=== PATIENT | female | born 1955 | race Caucasian/White ===

== ENCOUNTER 2018-08-16 12:17 | Inpatient (IN) ==
[2018-08-16 13:14] LABS: BASO# 0.06 X1000 (0.0-0.2); BASO% 0.6 % (0.0-0.8); EOS# 0.28 X1000 (0.0-0.7); EOS% 2.7 % (0.0-10.0); HEMATOCRIT 36.1 % (37.0-47.0); HEMOGLOBIN 11.4 g/dL (12.0-16.0); IMM GRAN# 0.02 X1000 (0.0-0.04); IMM GRAN% 0.2 % (0.0-0.5); LYMPH# 3.17 X1000 (1.2-3.4); LYMPH% 31.1 % (20.5-51.1); MCH 25.2 PG (27-31); MCHC 31.6 g/dL (33-37); MCV 79.7 FL (81-99); MONO# 0.77 X1000 (0.11-0.59); MONO% 7.6 % (1.7-9.3); MPV 10.1 FL (7.4-10.4); NEUT# 5.89 X1000 (1.4-6.5); NEUT% 57.8 % (42.2-75.2); PLT 314 X1000 (130-400); RBC 4.53 XMIL (4.2-5.4); RDW 14.9 % (11.5-14.5); WBC 10.19 X1000 (4.8-10.8)
--- NOTE | 2018-08-16 13:23 | EKG Report ---
Test Performed on : 08/16/2018 12:51:51 PM Test Reason : CVA Blood Pressure : / mmHG Vent. Rate : 083 BPM Atrial Rate : 083 BPM P-R Int : 154 ms QRS Dur : 114 ms QT Int : 376 ms P-R-T Axes : 047 -46 028 degrees QTc Int : 441 ms Normal sinus rhythm. Left anterior fascicular block Minimal voltage criteria for LVH, may be normal variant Abnormal ECG When compared with ECG of 25-JUL-2018 00:33, (Unconfirmed) Minimal criteria for Septal infarct are no longer present Unconfirmed Result
[2018-08-16 13:28] LABS: INR 1.06; PROTIME 14.3 Seconds (11.0-16.0)
--- NOTE | 2018-08-16 13:31 | Diag Imaging Result Doc PS360 ---
EXAM: CT HEAD W/O CONTRAST 08/16/2018 HISTORY: CVA TECHNIQUE: This exam was performed using automated exposure control, adjustment of mA or kV according to patient size, and/or use of iterative reconstruction technique. COMMENT: There is bilateral frontal encephalomalacia as well as extensive chronic appearing changes in the white matter of both hemispheres particularly in the centrum semiovale ovale regions. Compared to 07/25/2018 this has not changed significantly. There is no evidence of bleed mass effect or abnormal extra-axial fluid collection. The calvarium is intact. The paranasal sinuses are clear. IMPRESSION: Frontal encephalomalacia and chronic ischemic microvascular disease. No evidence of acute disease. Electronically signed by Will Monreal 08/16/2018 1:29 PM
[2018-08-16 13:36] LABS: AGAP 12; ALBUMIN 4.2 g/dL (3.5-5.0); ALKALINE PHOSPHATASE 115 U/L (32-104); BUN 12 mg/dL (8-22); CALCIUM 9.7 mg/dL (8.8-10.2); CHLORIDE 99 mmol/L (98-107); COSMO 282; CREATININE 0.8 mg/dL (0.5-0.9); ESTIMATED GFR > 60; GLUCOSE 153 mg/dL (70-104); GOT 51 U/L (10-30); GPT 35 U/L (10-36); POTASSIUM 4.6 mmol/L (3.5-5.1); SODIUM 140 mmol/L (136-145); TCO2 28 mmol/L (25-35); TOTAL PROTEIN 7.6 g/dL (6.3-8.3)
[2018-08-16] MEDS ORDERED: ASPIRIN PO ONE (13:38)
--- NOTE | 2018-08-16 13:40 | Diag Imaging Result Doc PS360 ---
EXAM: CHEST-PORTABLE HISTORY: CVA TECHNIQUE: Chest single view COMPARISON: 03/19/2017 FINDINGS: The lungs are well expanded. The heart is not enlarged. The vessels are not distended. There are no infiltrates. No effusion identified. IMPRESSION: Negative exam. Electronically signed by George Hernandez 08/16/2018 1:38 PM
--- NOTE | 2018-08-16 14:02 | PROVIDER DOCUMENTATION ---
This chart was entered by Joann Villeda Scribe, acting as scribe for Payam Lock MD. HPI-Neurological Disorder - General Chief Complaint: Stroke-Like Symptoms Stated Complaint: STROKE LIKE SX Time Seen by Provider: 08/16/18 12:53 Source: patient Allergies/Adverse Reactions: Patient Allergies Allergy/AdvReac Type Severity Reaction Status Date / Time morphine Allergy NAUSEA/VOMI Verified 08/16/18 12:38 TING Home Medications: Home Medication List Medication Instructions Recorded Confirmed Last Taken Type Alprazolam 0.5 mg PO HS 05/28/14 10/05/15 10/04/15 21:00 History 0.5 MG Lisinopril 2.5 mg PO DAILY 05/28/14 10/05/15 10/05/15 07:00 History 2.5 MG Metformin [Glucophage] 1,000 mg PO BID 05/28/14 10/05/15 10/05/15 07:00 History 1000 MG Sertraline [Zoloft] 200 mg PO DAILY 05/28/14 10/05/15 10/05/15 07:00 History 200 MG Trazodone [Desyrel] 300 mg PO HS 05/28/14 10/05/15 10/04/15 21:00 History 300 MG Fentanyl 50 Microgm/Hr Patch 1 patch TOP DIRECTED PRN PRN 10/05/15 10/05/15 10/04/15 10:00 History [Duragesic 50 Microgm/Hr Patch] yes Amoxicillin/Pot Clavulanate 875 mg PO Q12HR #20 tab 03/19/17 Unknown Rx [Augmentin] Promethazine/Dextromethorphan 10 ml PO Q6H PRN PRN #180 ml 03/19/17 Unknown Rx [Promethazine-Dm Syrup] Ciproflox/Dexameth Otic Susp 4 drp LEFT EAR BID #1 bottle 06/03/17 Unknown Rx [Ciprodex Otic Suspension] Acetaminophen with Codeine 1 ea PO Q6H PRN PRN #14 tab 07/25/18 Unknown Rx [Tylenol with Codeine #3 Tablet] - History of Present Illness-Neuro Nature of Presenting Problem: 63 yowf presents to the ed with c/o aphasia acute onset last night. pt sts sx have resolved on exam but does not have a pcp and wanted to be checked out. pt on exam is having normal conversation and has no seen neuro issues Headache Location: reports: frontal Severity: reports: mild Onset/Duration: reports: last night Timing: reports: gone now Context: reports: impaired speech Character of Altered Mental Status: reports: N/A Any recent trauma/injury?: reports: none Character of Deficits: reports: impaired speech New weakness or altered sensation location:: reports: none Cognitive Baseline: alert, oriented x3 Gait Baseline: walks without assistance Associated Symptoms: reports: headache, fatigue. denies: short of breath, decreased ability to walk or stand, fainting, confusion, chest pain, neck/back pain, fever/chills, nausea, vomiting, vision changes Similar Symptoms Previously?: No Recently seen or treated by another doctor?: No Review of Systems - Adult - REVIEW OF SYSTEMS - ADULT Constitutional: reports: see HPI, goyo. denies: chills, fever Eyes: reports: no symptoms reported Ears, Nose, Mouth & Throat: reports: no symptoms reported Cardiovascular: denies: chest pain, palpitations Respiratory: reports: no symptoms reported Gastrointestinal: denies: diarrhea, nausea, vomiting Genitourinary: reports: no symptoms reported Musculoskeletal: denies: joint pain, muscle weakness, neck pain Integumentary: reports: no symptoms reported Neurological: reports: see HPI, headache/migraines, other (aphasia). denies: dizziness/vertigo, loss of balance, numbness, paresthesia, seizure, slurred speech Psychiatric: reports: no symptoms reported Endocrine: reports: no symptoms reported Hematologic/Lymphatic: reports: no symptoms reported Allergic/Immunologic: reports: no symptoms reported All Other Systems: Reviewed and Negative Past History - Adult - PAST MEDICAL HISTORY-ADULT Review of Records: reports: Nursing Assessment Review, Medications Reviewed Major Childhood Illnesses: reports: denies history Cardiovascular: reports: HTN, hyperlipidemia Respiratory: reports: denies history Gastrointestinal: reports: cholelithiasis Obstetrical/Gynecological: reports: other (R breast cancer) Genitourinary: reports: denies history Musculoskeletal: reports: chronic pain Hand Dominance: Right Handed Neurological: reports: denies history Psychiatric: reports: denies history Endocrine/Immune: reports: Diabetes Diabetes Type: Type 2 Other Conditions: reports: denies history - PRIOR SURGERIES/PROCEDURES Surgical/Procedure History: reports: orthopedic (extremity) (bilateral shoulders), joint replacement (bilateral TKR) - PRIOR HOSPITALIZATIONS Prior Hospitalizations: reports: for other non-related - IMMUNIZATION STATUS Childhood Immunizations: See Nurse Assessment Flu Vaccine: See Nurse Assessment - FAMILY HISTORY Family History: reviewed, not pertinent - SOCIAL HISTORY Smoking: denies Substance Use: denies Alcohol Use Frequency: never Living Situation: family Physical Exam- Neurological - Physical Exam-Neuro Initial Vital Signs Reviewed: Yes General Appearance: appears well, alert, no apparent distress (all sx resolved), obese Eye Exam: bilateral eye: normal inspection, PERRL, EOMI HENMT: normocephalic/atraumatic, moist mucous membranes, normal ENT inspection Head Injury: no evidence of injury Neck: non-tender, full range of motion, supple, normal inspection Respiratory: chest non-tender, lungs clear, normal breath sounds Cardiovascular: normal peripheral pulses, regular rate, rhythm Abdominal Exam: normal bowel sounds, non tender, soft Lymphatic: no adenopathy Extremity: normal range of motion, non-tender, normal gait, normal inspection, no pedal edema, no calf tenderness, normal capillary refill, pelvis stable social worker psychiatric Exam: normal hearing, normal speech, PERRL Coordination/Gait: normal finger to nose, normal gait Motor/Sensory: no motor deficit, no sensory deficit, no pronator drift Neurologic: social worker psychiatric II-XII nml as tested, grossly normal, no motor/sensory deficits Integumentary: normal color, normal turgor, warm/dry Psych/Mental Status: normal mood/affect, normal thought content, normal thought process, oriented x 3 - Glascow Coma Scale Best Eye Response: (4) open spontaneously Best Verbal Response: (5) oriented Best Motor Response: (6) obeys commands Total Glascow Score: 15 Progress - PLAN OF CARE/RESULTS Progress/Plan/Lab Results: Vital Signs - 8 hr 08/16/18 12:30 08/16/18 13:49 Temperature 97.8 F Pulse Rate 90 82 Respiratory Rate 18 19 Blood Pressure 136/91 143/90 O2 Sat by Pulse Oximetry 95 94 L Laboratory Results - last 24 hr 08/16/18 08/16/18 08/16/18 13:00 13:00 13:00 WBC 10.19 RBC 4.53 Hgb 11.4 L Hct 36.1 L MCV 79.7 L MCH 25.2 L MCHC 31.6 L RDW Std Deviation 14.9 H Plt Count 314 MPV 10.1 Immature Gran % (Auto) 0.2 Neut % (Auto) 57.8 Lymph % (Auto) 31.1 [place] % (Auto) 7.6 Eos % (Auto) 2.7 Baso % (Auto) 0.6 Immature Gran # (Auto) 0.02 Neut # (Auto) 5.89 Lymph # (Auto) 3.17 [place] # (Auto) 0.77 H Eos # (Auto) 0.28 Baso # (Auto) 0.06 PT INR PTT (Actin FS) Sodium 140 Potassium 4.6 Chloride 99 Carbon Dioxide 28 Anion Gap 12 BUN 12 Creatinine 0.8 Estimated GFR/1.73 m2 > 60 BUN/Creatinine Ratio 15 Glucose 153 H Calculated Osmolality 282 Calcium 9.7 Total Bilirubin 0.20 AST 51 H ALT 35 Alkaline Phosphatase 115 H Troponin T < 0.010 Total Protein 7.6 Albumin 4.2 Globulin 3.0 Albumin/Globulin Ratio 1.0 08/16/18 13:00 WBC RBC Hgb Hct MCV MCH MCHC RDW Std Deviation Plt Count MPV Immature Gran % (Auto) Neut % (Auto) Lymph % (Auto) [place] % (Auto) Eos % (Auto) Baso % (Auto) Immature Gran # (Auto) Neut # (Auto) Lymph # (Auto) [place] # (Auto) Eos # (Auto) Baso # (Auto) PT 14.3 INR 1.06 PTT (Actin FS) 30.0 Sodium Potassium Chloride Carbon Dioxide Anion Gap BUN Creatinine Estimated GFR/1.73 m2 BUN/Creatinine Ratio Glucose Calculated Osmolality Calcium Total Bilirubin AST ALT Alkaline Phosphatase Troponin T Total Protein Albumin Globulin Albumin/Globulin Ratio Orders Category Date Time Status Cardiac Monitoring DIRECTED Care 08/16/18 12:40 Active Saline Loc NOW Care 08/16/18 12:40 Completed CHEST-PORTABLE [RAD] Stat Exams 08/16/18 12:[address] HEAD W/O CONTRAST [CT] Stat Exams 08/16/18 12:40 Completed CBC WITH ELECTRONIC DIFF [HEME] Stat Lab 08/16/18 13:00 Completed COMPREHENSIVE METABOLIC PANEL [CHEM] Stat Lab 08/16/18 13:00 Completed PROTIME WITH INR [COAG] Stat Lab 08/16/18 13:00 Completed PTT [COAG] Stat Lab 08/16/18 13:00 Completed TROPONIN T Stat Lab 08/16/18 13:00 Completed Aspirin Med 08/16/18 13:38 Discontinued 325 mg PO NOW ONE EKG [EKG] Stat Ther 08/16/18 12:40 Draft No TPA needed due to all sx resolved and onset was last night Result Diagrams: 08/16/18 13:00 08/16/18 13:00 - REASSESSMENT Reassessment #1 Time Reassessed: 13:36 Status: improving Reassessment Comment: NOT CANDIDATE FOR TPA. NIH=0, SX ONSET > 4.5 HRS - EKG 1 Time of EKG reading by physician:: 12:51 EKG Read and Signed by:: Payam Lock EKG Interpretation (*Must complete 3 of following elements*): Abnormal Rate: 83 Rhythm: nsr QRS: LVH, other (LAFB) DC Interval: normal ST Wave: normal - XRAY 1 XRAY: Bilateral XRAY Study: Chest Impression: See EMR Report (EXAM: CHEST-PORTABLE HISTORY: CVA TECHNIQUE: Chest single view COMPARISON: 03/19/2017 FINDINGS: The lungs are well expanded. The heart is not enlarged. The vessels are not distended. There are no infiltrates. No effusion identified. IMPRESSION: Negative exam. Electronically signed by George Hernandez 08/16/2018 1:38 PM 08/16/18 1338 Interpreting Physician: George Hernandez MD Dictated Date/Time: 08/16/181337 cc: Payam Lock MD; None,PCP) - CT/MRI 1 CT Study: Head Impression: See EMR Report (EXAM: CT HEAD W/O CONTRAST 08/16/2018 HISTORY: CVA TECHNIQUE: This exam was performed using automated exposure control, adjustment of mA or kV according to patient size, and/or use of iterative reconstruction technique. COMMENT: There is bilateral frontal encephalomalacia as well as extensive chronic appearing changes in the white matter of both hemispheres particularly in the centrum semiovale ovale regions. Compared to 07/25/2018 this has not changed significantly. There is no evidence of bleed mass effect or abnormal extra-axial fluid collection. The calvarium is intact. The paranasal sinuses are clear. IMPRESSION: Frontal encephalomalacia and chronic ischemic microvascular disease. No evidence of acute disease. Electronically signed by Will Monreal 08/16/2018 1:29 PM 08/16/18 1329 Interpreting Physician: Will Monreal MD Dictated Date/Time: 08/16/18 1328 cc: Payam Lock MD; None,PCP) - CONSULTS/PCP/HOSPITALIST Notification #1 *Consult/PCP/Hospitalist*: hospitalist dr tai Time Discussed: 13:55 Reason/Comments: TIA Consult Disposition: Admit Departure - Departure Date of Disposition Decision: 08/16/18 Time of Disposition Decision: 13:42 DIAGNOSIS: TIA (transient ischemic attack) Disposition: ADMITTED INPATIENT 09 Certified Medical Emergency: Emergent Condition: Stable Referrals and Follow-Ups: None,PCP [Primary Care Provider] - - Critical Care Note This patient required my direct & personal management of CC.: No Attestation - Physician/ ESTHER Attestation Patient care was provided by Advanced Practice Provider:: No The physician spent face to face time with patient:: Yes Advanced Practice Provider documentation review:: Supervising physician onsite and consulted in the evaluation and care of this patient. The physician did have a face to face encounter with the patient. - NIH Stroke Scale NIH Type: Initial Evaluation Level of Consciousness: 0-Alert LOC Questions (ask month and age): 0-Answers Both Correctly LOC Commands (ask to open & close eyes;make a fist, let go): 0-Obeys Both Correctly Best Gaze (horizontal eye movement): 0-Normal Visual (use finger movement, counting or visual threat): 0-No Visual Loss Facial Palsy (show teeth or raise eyebrows & close eyes tght: 0-Symmetrical Movement Motor Function-left arm: 0-Normal Motor Function-right arm: 0-Normal Motor Function-left le-Normal Motor Function-right le-Normal Limb Ataxia(mstkzs-zbyk-mnbkrz, or heel to lemus): 0-No Ataxia Sensory(pin prick to face,arms,trunk,legs-compare side/side): 0-No Ataxia Best Language(name item/read sentence.Ex-Down to Earth): 0-No Aphasia Dysarthria(Pt read words or say words Ex.Mama,Tip-Top,Thanks: 0-Normal Articulat ion Extinction and Inattention: 0-Normal Modified [place] Score Criteria: 0-no symptoms This chart was documented by the indicated scribe, (Joann Villeda Scribe) and accurately reflects the services I performed and decisions made by me, Payam Lock MD, as attested by the provider's signature.
[2018-08-16] MEDS ORDERED: PNEUMOVAX 23 IM ONE (17:30)
--- NOTE | 2018-08-16 18:39 | HISTORY AND PHYSICAL ---
CHIEF COMPLAINT: Had trouble talking last night. HISTORY OF PRESENT ILLNESS: This is a 63-year-old female with a reported history of breast cancer, diabetes mellitus, and hypertension. She presents to the emergency room for the second time in 2 weeks thinking that she was having a stroke. Each time, she reported trouble talking, although by the time she got to the emergency room, symptoms had resolved. She denied any other symptoms or deficits. She did state that over the last 3 days, she has had dysuria, frequency, and urgency. PAST MEDICAL HISTORY: 1. Right breast cancer, status post mastectomy. 2. Diabetes mellitus. 3. Hypertension. PAST SURGICAL HISTORY: 1. Mastectomy. 2. Total knee replacement. 3. Bilateral shoulder surgery. REVIEW OF SYSTEMS: Discussed with the patient with pertinent positives as stated in the HPI. She denied any syncope or dizziness, any chest pain, palpitations, cough, fever, chills, night sweats, recent weight loss or weight gain, any nausea, vomiting, diarrhea, constipation, black or bloody vomitus or stools, any hematuria. PHYSICAL EXAMINATION: GENERAL: This is a 63-year-old female who is sitting up in the stretcher in the emergency room, talking to a friend, in no distress. VITAL SIGNS: Blood pressure is 137/70 with a heart rate of 90, respirations are 18, temperature is 98.1 degrees oral, with room air saturations 95% to 97%. EYES: Pupils are equal, round, and react to light. EOMs are intact. Sclerae are anicteric. HEAD: Head is normocephalic, atraumatic. ENT: Mucous membranes are moist. NECK: Supple with trachea midline. CARDIOVASCULAR: Regular rate and rhythm. S1 and S2 appreciated. She has no murmur. She has no lower extremity edema. Calves are nontender bilateral with peripheral pulses palpable x4 extremities. PULMONARY: Breath sounds are clear with no increased work of breathing noted. Chest rises and falls symmetrically with respirations. GASTROINTESTINAL: Abdomen is soft, nontender, nondistended with bowel sounds in all 4 quadrants. GENITOURINARY: She has no CVA nor suprapubic tenderness. NEUROLOGIC: She is alert and oriented x3. Cranial nerves 2 through 12 are grossly intact. SKIN: Warm and dry. LABS: WBC is 10.1 with hemoglobin 11.4, hematocrit 36.1, and platelets of 314,000. Sodium 140, potassium 4.6, BUN 12, creatinine 0.8, glucose 153. Troponin is negative. Chest x-ray revealed lungs well expanded. Heart is not enlarged. Vessels are not distended. There are no infiltrates. No effusion identified. CT of the head revealed frontal encephalomalacia and chronic ischemic microvascular disease. No evidence of acute disease. ASSESSMENT AND PLAN: 1. Transient ischemic attack. 2. Hypertension. 3. Diabetes mellitus. 4. History of right breast cancer. PLAN: The patient will be admitted to the medical-surgical floor at [facility]. She will be placed on telemetry with neurologic checks every 4 hours. We will check patterned blood glucose with sliding scale insulin. We will check a urinalysis as well as a urine drug screen. Will obtain a carotid ultrasound as well as an echocardiogram. She will be placed on a diabetic diet. Repeat a CBC, CMP, magnesium in the morning. Further treatments pending hospital course. Dictated by DANDRE Norman for Maurizio Rivera MD cc: DANDRE Norman MD
[2018-08-16 19:43] LABS: URINE SOURCE CLEAN CATCH
[2018-08-16 19:50] LABS: BILIRUBIN URINE NEGATIVE (NEGATIVE); BLOOD URINE NEGATIVE (NEGATIVE); CLARITY VERY CLOUDY (CLEAR); COLOR YELLOW; GLUCOSE URINE NEGATIVE (NEGATIVE); KETONE URINE TRACE mg/dL (NEGATIVE); LEUKOCYTES URINE 1+ (NEGATIVE); NITRITE URINE POSITIVE (NEGATIVE); PH URINE 6.5; PROTEIN URINE TRACE mg/dL (NEGATIVE); SP GRAVITY URINE 1.015; UROBILINOGEN URINE 1 mg/dL
[2018-08-16 19:52] LABS: URINE BACTERIA 3+ /HFP; URINE YEAST NONE SEEN /HPF
[2018-08-16 19:53] LABS: URINE CAST NONE SEEN /LPF; URINE CRYSTAL NONE SEEN /HPF; URINE EPITHELIAL CELLS >10 /HPF (<10); URINE WBC 20-40 /HPF (<10)
[2018-08-16 19:54] LABS: UR AMPHETAMINES QUAL NONE DETECTED (NONE DETECT); UR BARBITUATES QUAL NONE DETECTED (NONE DETECT); UR BENZODIAZEPIN QUAL NONE DETECTED (NONE DETECT); UR CANNABINOIDS QUAL NONE DETECTED (NONE DETECT); UR COCAINE QUAL NONE DETECTED (NONE DETECT); UR METHADONE QUAL NONE DETECTED (NONE DETECT); UR METHAMPHETAMINE QUAL NONE DETECTED (NONE DETECT); UR OPIATES QUAL PRESUMPTIVE POSITIVE (NONE DETECT); UR OXYCODONE QUAL NONE DETECTED (NONE DETECT); UR PCP QUAL NONE DETECTED (NONE DETECT); UR PROPOXYPHENE QUAL NONE DETECTED (NONE DETECT); UR TCA QUAL NONE DETECTED (NONE DETECT)
--- NOTE | 2018-08-16 20:19 | HISTORY AND PHYSICAL ---
ADDENDUM: The patient is seen and examined by myself. Full note dictated and discussed with nurse practitioner. The patient presented to the hospital stating that she had had some difficulty speaking, notes that this has happened before, but completely resolved as it did this time. Currently she is awake, alert, oriented. Speech is regular. She is in no distress. We will admit her to the hospital. Workup for TIAs. We will continue to follow. cc: Maurizio Rivera MD
[2018-08-16] MEDS ORDERED: TYLENOL PO PRN (20:21)
[2018-08-16] MEDS: CYMBALTA PO SCH (20:24)
[2018-08-16] MEDS: NEURONTIN PO SCH (20:24)
[2018-08-16] MEDS: HUMALOG (PARKWAY) SUBQ SCH (21:32)
[2018-08-17 05:36] LABS: BASO# 0.07 X1000 (0.0-0.2); BASO% 0.8 % (0.0-0.8); EOS# 0.42 X1000 (0.0-0.7); EOS% 4.7 % (0.0-10.0); IMM GRAN# 0.01 X1000 (0.0-0.04); IMM GRAN% 0.1 % (0.0-0.5); LYMPH# 3.21 X1000 (1.2-3.4); MCH 24.9 PG (27-31); MCHC 31.4 g/dL (33-37); MCV 79.4 FL (81-99); MONO# 0.62 X1000 (0.11-0.59); NEUT# 4.58 X1000 (1.4-6.5); NEUT% 51.4 % (42.2-75.2); PLT 291 X1000 (130-400); RBC 4.41 XMIL (4.2-5.4); RDW 14.9 % (11.5-14.5); WBC 8.91 X1000 (4.8-10.8)
[2018-08-17 05:55] LABS: AGAP 13; ALBUMIN 3.8 g/dL (3.5-5.0); ALKALINE PHOSPHATASE 111 U/L (32-104); BUN 12 mg/dL (8-22); CALCIUM 9.1 mg/dL (8.8-10.2); CHLORIDE 100 mmol/L (98-107); COSMO 283; CREATININE 0.7 mg/dL (0.5-0.9); ESTIMATED GFR > 60; GLUCOSE 196 mg/dL (70-104); GOT 41 U/L (10-30); GPT 34 U/L (10-36); MAGNESIUM 1.4 mg/dL (1.5-2.7); POTASSIUM 3.8 mmol/L (3.5-5.1); SODIUM 139 mmol/L (136-145); TCO2 26 mmol/L (25-35); TOTAL PROTEIN 7.2 g/dL (6.3-8.3)
[2018-08-17] MEDS: PRILOSEC PO SCH (06:05)
[2018-08-17] MEDS: HUMALOG (PARKWAY) SUBQ SCH ×4 (06:36→20:28)
[2018-08-17] MEDS: NEURONTIN PO SCH ×2 (09:09→20:28)
[2018-08-17] MEDS: GLUCOPHAGE PO SCH (09:09)
[2018-08-17] MEDS: CYMBALTA PO SCH ×2 (09:09→20:28)
--- NOTE | 2018-08-17 09:29 | Extremity Venous Study ---
EXAM: Carotid Ultrasound HISTORY: TIA TECHNIQUE: Carotid Doppler ultrasound COMPARISON: None. FINDINGS: Right: There is normal flow in the right common carotid artery. No occlusion or stenosis. No plaque within the bulb. Peak systolic velocity within the internal carotid artery is 92 cm/s. The ICA/CCA ratio is 1.16. There is antegrade flow in the vertebral artery. Left: There is normal flow in the common carotid artery. No occlusion or stenosis. No plaque within the bulb. Peak systolic velocity in the internal carotid artery 77 cm/s. The ICA/CCA ratio 0.89. There is antegrade flow in the vertebral artery. IMPRESSION: No occlusion or stenosis within either common carotid artery or within either internal carotid artery. Electronically signed by George Hernandez 08/17/2018 9:27 AM
[2018-08-17] MEDS: NORCO-5 PO PRN ×2 (10:43→18:57)
--- NOTE | 2018-08-17 16:41 | ECHO REPORT ---
ORDER DATE: 08/17/2018 INTERPRETING PHYSICIAN: Luis F Chaparro MD INDICATION: TIA. M-MODE MEASUREMENTS: Left ventricle end diastole: 5.2 cm. Left ventricle end systole: 4.4 cm. Posterior wall: 1.0 cm. Interventricular septum: 1.0 cm. Left atrium: 4.2 cm. Aortic diameter: 3.4 cm. SUMMARY OF 2-DIMENSIONAL IMAGIN. The left ventricular chamber appears to be mildly to moderately enlarged. The left ventricular systolic function is mildly decreased in a global manner. Ejection fraction is estimated at 45%. 2. The left atrium appears to be moderately enlarged. 3. The aortic valve is normal. Color flow mapping is unremarkable. 4. The mitral valve looks normal. Color flow mapping unremarkable. 5. Pulsed wave Doppler of mitral inflow is "normal." 6. Tissue Doppler of septal and lateral mitral annulus averages 7 cm. 7. There is no definite diastolic dysfunction. 8. The pulmonary venous flow is normal. The pulmonic valve is unremarkable. 9. The tricuspid valve also appears to be unremarkable. Color flow mapping indicates mild degree of regurgitation. 10.Pulmonary systolic pressure is estimated at 42 mmHg. 11.There is no pericardial effusion, mass, and no thrombus. CONCLUSIONS: In summary, the study shows 1. Mild to moderate enlarged left ventricle with mildly decreased ejection fraction estimated at 45% in a global manner 2. Probably normal diastolic function. 3. No evidence of any significant valvular abnormality. 4. Pulmonary systolic pressure is 42 mmHg. Clinical correlation is recommended. cc: MD Conchita Hogue CRNP
--- NOTE | 2018-08-17 18:35 | PROGRESS NOTE ---
DATE: 08/17/2018 SUBJECTIVE: Patient notes that she is feeling better. She has had no further speech issues, but her blood sugar has been elevated, and she is nervous going home with her blood sugar up. OBJECTIVE: Vital signs: Temperature 98.3 degrees, pulse 81, respiratory rate 18, BP 133/68. General: Patient is awake, alert. Speech is normal. She is in no respiratory distress. She appears to have no acute neurologic findings. HEENT: Normocephalic. Neck: Supple. Cardiovascular: Regular rate. Chest: Clear. Abdomen: Soft. Extremities: Moves all extremities. ASSESSMENT: 1. Transient ischemic attack, resolved. 2. Diabetes with hyperglycemia. 3. Hypertension. PLAN: Overall, patient is improved. We will watch her overnight, adjust her blood sugar medications and will follow. Hopefully, symptoms will improve, and she can discharge home tomorrow. cc: Maurizio Rivera MD
[2018-08-17] MEDS ORDERED: DESYREL PO SCH (21:00)
[2018-08-18] MEDS: HUMALOG (PARKWAY) SUBQ SCH ×2 (06:21→11:26)
[2018-08-18] MEDS: PRILOSEC PO SCH (06:21)
[2018-08-18] MEDS: CYMBALTA PO SCH (08:07)
[2018-08-18] MEDS: NEURONTIN PO SCH (08:07)
[2018-08-18] MEDS: GLUCOPHAGE PO SCH (08:07)
[2018-08-18 08:28] VITALS: BP 134/75
[2018-08-18] MEDS ORDERED: ASPIRIN PO SCH (09:00)
[2018-08-18] MEDS: NORCO-5 PO PRN (10:15)
--- NOTE | 2018-08-18 21:28 | DISCHARGE SUMMARY ---
ADMISSION DATE: 08/16/2018 DISCHARGE DATE: 08/18/2018 DIAGNOSES: 1. Transient ischemic attack, resolved. 2. Hypertension. 3. Diabetes mellitus. 4. History of right-sided breast cancer. 5. Chronic pain. DIAGNOSTICS: 1. Chest x-ray revealed a negative exam. Lungs are well expanded. Heart is not enlarged. Vessels are not distended. There are no infiltrates. No effusion identified. 2. Carotid Doppler revealed no occlusion or stenosis within either common carotid artery or within either internal carotid artery. 3. Echocardiogram revealed mild to moderate enlarged left ventricle with mildly decreased ejection fraction estimated at 45%. Normal diastolic function. No evidence of any valvular abnormality. 4. CT of the head revealed frontal encephalomalacia and chronic ischemic microvascular disease. No evidence of acute disease. HOSPITAL COURSE: Ms Nam presented to the emergency room after having trouble talking the night before. This has happened in the past although each time it spontaneously resolved. This did resolve shortly after beginning the night before presenting to the emergency room and has not recurred. CT of the head was negative. Echocardiogram and carotid Doppler as stated above. Thankfully she is ready for discharge. The patient stated that she was in a pain clinic in another city. She has recently moved here to be with her daughter. She does have an appointment with Dr. Keaton Casas coming up for medical management. DISCHARGE PHYSICAL EXAM: Vital signs: Blood pressure is 134/75 with a heart rate of 81, respirations 16, temperature is 98.3 degrees with room air saturations 96%. HEENT: Pupils equal, round, react to light. EOMs are intact. Sclerae are anicteric. Head is normocephalic, atraumatic. Mucous membranes are moist. Neck: Is supple with trachea midline. She has no JVD. Cardiovascular: Regular rate and rhythm. S1 and S2 appreciated. She has no lower extremity edema. Calves are nontender bilateral with peripheral pulses palpable x4 extremities. Pulmonary: Breath sounds are clear. No increased work of breathing noted. Chest rises and falls symmetric respiration. Chest wall is nontender to palpation. Gastrointestinal: Abdomen soft, nontender, nondistended. Bowel sounds in all 4 quadrants. Neurologic: She is alert, oriented x3 with cranial nerves 2-12 grossly intact. DISCHARGE MEDICATIONS: 1. Cymbalta 30 mg p.o. b.i.d. 2. Gabapentin 300 mg p.o. b.i.d. 3. Metformin 1000 mg p.o. daily. 4. Omeprazole 20 mg p.o. daily. 5. Trazodone 300 mg p.o. at bedtime. 6. Voltaren 50 mg p.o. b.i.d. The patient has been instructed to take this with her omeprazole and to also take with food. 7. [place] 5/325 one q.6-8 hours p.r.n. 8. Aspirin 81 mg p.o. daily. Prescriptions were written for aspirin, Voltaren, and trazodone as the patient states that her other medications she has refills enough until her appointment with Dr. Casas. FOLLOWUP: She needs to follow up with Dr. Casas as scheduled. She has been instructed to return to the emergency room or call to be seen sooner for any syncope, dizziness, chest pain, palpitations, for any weakness, difficulty walking, any change in vision or speech, for temperature greater than 101.5, any shortness of breath, cough, fever, chills, nausea, vomiting, diarrhea, constipation, black or bloody vomitus or stools, any hematuria, dysuria, frequency, urgency or for any questions or concerns that she may have. She is being discharged home in stable condition with family members. TIME SPENT: Greater than 30 minutes. Dictated by DANDRE Norman for Maurizio Rivera MD cc: DANDRE Norman MD
--- NOTE | 2018-08-19 05:41 | DISCHARGE SUMMARY ---
ADMISSION DATE: 08/16/2018 DISCHARGE DATE: 08/18/2018 ADDENDUM: Patient seen and examined by myself. Full note dictated and discussed with nurse practitioner. On discharge, patient is awake, alert. She is in no distress. All her neurologic symptoms have resolved. She is ambulating without any difficulty, eating a full diet. She was admitted to the hospital secondary to speech issues. This thankfully has resolved. Her carotid and echo were also normal. cc: Maurizio Rivera MD
== END 2018-08-18 11:50 | disposition home or self-care (01) | DRG 69 ==
LOC: P.ED 12:17 → P.MEDSURG 14:39
PROVIDERS: ATTEND Family Medicine
CPT/HCPCS: 70450; 71010; 71045; 80053; 80104; 80301; 80305; 81001; 82948; 83735; 84484; 85025; 85610; 85730; 93005; 93306; 93880; 99285; A9270; G0431; G0434; G0477; J1815; XXXXX

== ENCOUNTER 2018-10-25 03:57 | Inpatient (IN) ==
--- NOTE | 2018-10-25 04:44 | PROVIDER DOCUMENTATION ---
HPI-Neurological Disorder - General Chief Complaint: Stroke-Like Symptoms Stated Complaint: HIGH BLOOD SUGAR Time Seen by Provider: 10/25/18 04:02 Source: patient, other (FRIEND) Allergies/Adverse Reactions: Patient Allergies Allergy/AdvReac Type Severity Reaction Status Date / Time morphine Allergy NAUSEA/VOMI Verified 10/25/18 07:54 TING Home Medications: Home Medication List Medication Instructions Recorded Confirmed Last Taken Type Metformin [Glucophage] 1,000 mg PO DAILY 05/28/14 10/25/18 10/05/15 07:00 History 1000 MG Duloxetine HCl [Cymbalta] 30 mg PO BID 08/16/18 10/25/18 Unknown History Gabapentin 300 mg PO BID 08/16/18 10/25/18 Unknown History Omeprazole 1 cap PO DAILY 08/16/18 10/25/18 Unknown History Hydrocodone/Acetaminophen [[place] 1 ea PO Q6-8H PRN PRN 08/17/18 10/25/18 Unknown History 5-325 Tablet] Aspirin 81 mg PO DAILY chewtab 08/18/18 10/25/18 Unknown Rx Diclofenac Na D.r. [Voltaren] 50 mg PO BID #60 tab 08/18/18 10/25/18 Unknown Rx Amitriptyline HCl 150 mg PO DAILY 10/25/18 10/25/18 Unknown History ATORVAstatin [Lipitor] 40 mg PO QHS #30 tab 10/26/18 Unknown Rx Cefpodoxime Proxetil 100 mg PO BID #8 tab 10/26/18 Unknown Rx - History of Present Illness-Neuro Nature of Presenting Problem: A 63 Y/O FEMALE PRESENTS WITH C/O SLURRED SPEECH WEAKNESS. PER THE ROOM MATE THE PT NORMAL THE LAST TIME SHE SAW HER AND WHEN SHE SAW HER AROUND MIDNIGHT SHE WAS BEHAVING THIS WAY. ROOM MATE SAYS THE PT WAS SEEN NORMALLY BY HER IN THE MORNING AROUND 8 AM. THE DAUGHTER WAS WITH THE PATIENT DURING THE DAY. PER THE FRIEND THE PT WAS LEANING TOWARDS ONE SIDE WHILE WALKING TO THE CAR WHILE COMING TO HOSPITAL AND FELL. THERE WAS NO HEAD INJURY. PT DENIES ANY CP OR SOB OR N/V/D OR ABD PAIN. PT DENIES ANY SIMILAR SYMPTOMS IN THE PAST. ON ARRIVAL BS IS 216 Severity: reports: mild Onset/Duration: reports: unsure Timing: reports: still present Context: reports: none Approximate time patient was last seen normal?: 08:00 Character of Altered Mental Status: reports: other (SLEEPY, SLURRED) Any recent trauma/injury?: reports: none Character of Deficits: reports: new weakness, impaired speech, decreased ability to stand New weakness or altered sensation location:: reports: RUE, LUE, right facial Cognitive Baseline: alert, oriented x3 Gait Baseline: walks without assistance Associated Symptoms: reports: decreased ability to walk or stand, slurred speech , trouble walking, weakness. denies: short of breath, headache, fainting, dizziness, confusion, chest pain, neck/back pain, fatigue, fever/chills, insomnia, loss of consciousness, muscle spasms, nausea, paresthesia, diap horetic, ringing in ears, seizures, tingling in legs/feet, vomiting, vision changes Similar Symptoms Previously?: No Recently seen or treated by another doctor?: No Review of Systems - Adult - REVIEW OF SYSTEMS - ADULT Constitutional: denies: no symptoms reported Eyes: denies: no symptoms reported Ears, Nose, Mouth & Throat: denies: no symptoms reported Cardiovascular: denies: no symptoms reported Respiratory: denies: no symptoms reported Gastrointestinal: denies: no symptoms reported Genitourinary: denies: no symptoms reported Musculoskeletal: denies: no symptoms reported Integumentary: denies: no symptoms reported Neurological: reports: see HPI Psychiatric: denies: no symptoms reported Endocrine: denies: no symptoms reported Hematologic/Lymphatic: denies: no symptoms reported Allergic/Immunologic: denies: no symptoms reported Past History - Adult - PAST MEDICAL HISTORY-ADULT Review of Records: reports: Nursing Assessment Review, Medications Reviewed, Social history reviewed & non-contributory. Major Childhood Illnesses: reports: denies history Cardiovascular: reports: HTN, hyperlipidemia Gastrointestinal: reports: cholelithiasis Obstetrical/Gynecological: reports: other (R breast cancer) Musculoskeletal: reports: chronic pain Endocrine/Immune: reports: Diabetes Other Conditions: reports: denies history - PRIOR SURGERIES/PROCEDURES Surgical/Procedure History: reports: orthopedic (extremity) (bilateral shoulders), joint replacement (bilateral TKR) - PRIOR HOSPITALIZATIONS Prior Hospitalizations: reports: for other non-related - IMMUNIZATION STATUS Childhood Immunizations: See Nurse Assessment Flu Vaccine: See Nurse Assessment - FAMILY HISTORY Family History: reviewed, not pertinent Physical Exam- Neurological - Physical Exam-Neuro Initial Vital Signs Reviewed: Yes General Appearance: no apparent distress, obese Eye Exam: bilateral eye: normal inspection, PERRL, EOMI HENMT: normocephalic/atraumatic, moist mucous membranes, pharynx normal Head Injury: no evidence of injury. negative: Sparks's Sign, contusions Neck: non-tender, full range of motion, supple Respiratory: chest non-tender, lungs clear, normal breath sounds, no accessory muscle use Cardiovascular: normal peripheral pulses, regular rate, rhythm, no edema Abdominal Exam: non tender, soft Peripheral Pulses: radial (R): 2+, radial (L): 2+ seat mender Exam: abnormal speech, facial asymmetry, facial weakness. negative: normal speech, facial paresthesias, gaze palsy, tongue deviation to R, tongue deviation to L Neurologic: seat mender II-XII nml as tested, facial droop (TOWARDS RIGHT), motor weakne ss (RLE), sensory deficit (RLE). negative: no motor/sensory deficits Psych/Mental Status: normal mood/affect, oriented x 3 - Glascow Coma Scale Best Eye Response: (4) open spontaneously Best Verbal Response: (5) oriented Best Motor Response: (6) obeys commands Progress - PLAN OF CARE/RESULTS Progress/Plan/Lab Results: Orders Category Date Time Status Admit - [facility] Routine AdmDCTranf 10/25/18 07:40 Active Activity - Bed Rest with BRP ORDERED Care 10/25/18 07:40 Active Cardiac Monitoring DIRECTED Care 10/25/18 04:44 Completed FSBS/Accucheck Result AC + HS Care 10/25/18 07:40 Active Intake and Output-Strict ORDERED Care 10/25/18 07:40 Active Neurological Check ORDERED Care 10/25/18 07:43 Active Saline Loc NOW Care 10/25/18 04:44 Completed Update & Confirm Home Medicati ROUTINE Care 10/25/18 07:43 Active Z-Document. for Tele Applied ORDERED Care 10/25/18 07:42 Completed Diabetic Diet Diet 10/25/18 07:41 Completed CHEST-PORTABLE [RAD] Stat Exams 10/25/18 04:[address] HEAD W/O CONTRAST [CT] Stat Exams 10/25/18 04:02 Completed MRI BRAIN W/WO CONTRAST [MRI] Stat Exams 10/25/18 08:01 Completed ALCOHOL BLOOD Stat Lab 10/25/18 04:10 Completed CBC WITH DIFF [HEME] Routine Lab 10/25/18 11:34 Completed CBC WITH ELECTRONIC DIFF [HEME] Stat Lab 10/25/18 04:10 Completed COMPREHENSIVE METABOLIC PANEL [CHEM] Routine Lab 10/25/18 11:34 Completed COMPREHENSIVE METABOLIC PANEL [CHEM] Stat Lab 10/25/18 04:10 Completed PROTIME WITH INR [COAG] Stat Lab 10/25/18 04:10 Completed PTT [COAG] Stat Lab 10/25/18 04:10 Completed TROPONIN T Stat Lab 10/25/18 04:10 Completed URINALYSIS W/POSS RFLX CULT [URINALYSIS] Stat Lab 10/25/18 04:10 Completed URINE CULTURE [RM] Routine Lab 10/25/18 05:16 Completed URINE DRUG SCREEN Stat Lab 10/25/18 04:10 Completed 0.9% Sodium Chloride Inj [Ns] 1,000 ml Med 10/25/18 08:15 Discontinued IV 125 mls/hr ATORVAstatin [Lipitor] Med 10/25/18 09:00 Discontinued 40 mg PO DAILY CefTRIAXONE [Rocephin] 1 gm Med 10/25/18 07:09 Discontinued 0.9% Sodium Chloride Inj [Ns] 50 ml IV NOW Diclofenac Na D.r. [Voltaren] Med 10/25/18 21:00 Discontinued 50 mg PO BID Duloxetine [Cymbalta] Med 10/25/18 21:00 Discontinued 30 mg PO BID Gabapentin [Neurontin] Med 10/25/18 21:00 Discontinued 300 mg PO BID Omeprazole [Prilosec] Med 10/26/18 07:00 Discontinued 40 mg PO DAILY@0700 Trazodone [Desyrel] Med 10/26/18 21:00 Discontinued 300 mg PO QHS Telemetry [OM.EQ] Routine Oth 10/25/18 07:40 Active EKG [EKG] Stat Ther 10/25/18 04:44 Draft Transfer/Admit Order [TRANSFER] Routine Transfer 10/25/18 08:05 Completed Result Diagrams: 10/25/18 11:34 10/25/18 11:34 - REASSESSMENT Reassessment #1 Time Reassessed: 06:21 Status: improving Reassessment Comment: SPEECH BETTER. PT HAS DECREASED STRENGTH IN RLE - CT/MRI 1 CT Study: Head Impression: Abnormal, See EMR Report ([facility] - [address], [address], [place] [address] [facility] - [address] [place] [address] Department of Imaging Patient: ЮЛИЯ CARPENTER Date: 10/25/18#: [id number] : 1955DM Status: PRE ERAcct#: [id number] Age/Sex: 63/FRoom/Bed: Loc: ED Ordering Physician: Thi Barnes MD Family Physician: Keaton Casas Jr, MD Reason for Procedure: STROKE RULE OUT ___ Signed EXAM: CT HEAD W/O CONTRAST INDICATION: STROKE RULE OUT TECHNIQUE: This exam was performed using automated exposure control, adjustment of mA or kV according to patient size, and/or use of iterative reconstruction technique. COMPARISON: 08/16/2018 FINDINGS: There is stable bifrontal encephalomalacia. There is extensive white matter microangiopathy that is stable. There is no definite acute infarct given the limited sensitivity of CT versus MRI. There is no discrete intracranial mass, mass effect, or intracranial hemorrhage. The surrounding soft tissues and bony structures are essentially unremarkable. IMPRESSION: Stable chronic changes as described. No definite acute intracranial pathology by CT. Electronically signed by Rony Capps 10/25/2018 4:44 AM 10/25/18443 Interpreting Physician: Rony Capps MD Dictated Date/Time: 10/25/18 648 cc: Thi Barnes MD; Keaton Casas Jr, MD) Comparison with other Films: no changes - CONSULTS/PCP/HOSPITALIST Notification #1 *Consult/PCP/Hospitalist*: Ciara for hospitalist Time Discussed: 07:10 Consult Disposition: Will see in ED, Admit Departure - Departure Date of Disposition Decision: 10/25/18 Time of Disposition Decision: 07:10 DIAGNOSIS: Altered mental state, UTI (urinary tract infection), TIA (transient ischemic attack), Hyperglycemia Disposition: ADMITTED INPATIENT 09 Certified Medical Emergency: Emergent Condition: Stable - Critical Care Note This patient required my direct & personal management of CC.: No Attestation - Physician/ ESTHER Attestation Patient care was provided by Advanced Practice Provider:: No The physician spent face to face time with patient:: Yes Advanced Practice Provider documentation review:: Supervising physician onsite and consulted in the evaluation and care of this patient. The physician did have a face to face encounter with the patient. - NIH Stroke Scale NIH Type: Initial Evaluation Level of Consciousness: 1-Drowsy, but arousable with minimal stimulation LOC Questions (ask month and age): 0-Answers Both Correctly LOC Commands (ask to open & close eyes;make a fist, let go): 0-Obeys Both Correctly Best Gaze (horizontal eye movement): 0-Normal Visual (use finger movement, counting or visual threat): 0-No Visual Loss Facial Palsy (show teeth or raise eyebrows & close eyes tght: 1-Minor Paralysis Motor Function-left arm: 0-Normal Motor Function-right arm: 1-Drift Motor Function-left le-Normal Motor Function-right le-Drift Limb Ataxia(bfidhi-pkfm-vibhhr, or heel to lemus): 0-No Ataxia Sensory(pin prick to face,arms,trunk,legs-compare side/side): 0-No Ataxia Best Language(name item/read sentence.Ex-Down to Earth): 0-No Aphasia Dysarthria(Pt read words or say words Ex.Mama,Tip-Top,Thanks: 1-Mild-Mod Slurring Words NIH Total Score: 4
--- NOTE | 2018-10-25 04:47 | Diag Imaging Result Doc PS360 ---
EXAM: CT HEAD W/O CONTRAST INDICATION: STROKE RULE OUT TECHNIQUE: This exam was performed using automated exposure control, adjustment of mA or kV according to patient size, and/or use of iterative reconstruction technique. COMPARISON: 08/16/2018 FINDINGS: There is stable bifrontal encephalomalacia. There is extensive white matter microangiopathy that is stable. There is no definite acute infarct given the limited sensitivity of CT versus MRI. There is no discrete intracranial mass, mass effect, or intracranial hemorrhage. The surrounding soft tissues and bony structures are essentially unremarkable. IMPRESSION: Stable chronic changes as described. No definite acute intracranial pathology by CT. Electronically signed by Rony Capps 10/25/2018 4:44 AM
[2018-10-25 04:54] LABS: URINE SOURCE CATH
[2018-10-25 04:57] LABS: EOS# 0.35 X1000 (0.0-0.7); EOS% 3.6 % (0.0-10.0); HEMATOCRIT 33.2 % (37.0-47.0); HEMOGLOBIN 10.2 g/dL (12.0-16.0); IMM GRAN# 0.03 X1000 (0.0-0.04); IMM GRAN% 0.3 % (0.0-0.5); LYMPH# 3.66 X1000 (1.2-3.4); LYMPH% 37.3 % (20.5-51.1); MCH 24.9 PG (27-31); MCHC 30.7 g/dL (33-37); MONO# 0.64 X1000 (0.11-0.59); MONO% 6.5 % (1.7-9.3); MPV 10.1 FL (7.4-10.4); NEUT# 5.04 X1000 (1.4-6.5); NEUT% 51.3 % (42.2-75.2); PLT 303 X1000 (130-400); RDW 15.8 % (11.5-14.5); WBC 9.82 X1000 (4.8-10.8)
[2018-10-25 04:58] LABS: BILIRUBIN URINE NEGATIVE (NEGATIVE); BLOOD URINE NEGATIVE (NEGATIVE); COLOR YELLOW; GLUCOSE URINE NEGATIVE (NEGATIVE); KETONE URINE NEGATIVE (NEGATIVE); LEUKOCYTES URINE SMALL (NEGATIVE); NITRITE URINE POSITIVE (NEGATIVE); PH URINE 5.5; PROTEIN URINE NEGATIVE (NEGATIVE); SP GRAVITY URINE 1.017; TURBIDITY URINE CLEAR (CLEAR); UROBILINOGEN URINE NORMAL (NORMAL)
[2018-10-25 04:59] LABS: UR EPITHELIAL CELLS <10 /HPF (<10); URINE BACTERIA 4+ /HPF; URINE RBC <10 /HPF (<10); URINE WBC <10 /HPF (<10)
[2018-10-25 05:10] LABS: INR 1.1; PROTIME 14.4 Seconds (11.0-16.0); PTT 28.5 Seconds (22.3-41.8)
--- NOTE | 2018-10-25 05:12 | EKG Report ---
Test Performed on : 10/25/2018 04:29:43 AM Test Reason : Stroke like symptoms Blood Pressure : / mmHG Vent. Rate : 098 BPM Atrial Rate : 098 BPM P-R Int : 190 ms QRS Dur : 128 ms QT Int : 370 ms P-R-T Axes : 032 -39 051 degrees QTc Int : 472 ms Sinus rhythm. with fusion complexes Left axis deviation Left ventricular hypertrophy with QRS widening Cannot rule out Septal infarct , age undetermined Abnormal ECG When compared with ECG of 16-AUG-2018 12:51, fusion complexes are now present Minimal criteria for Septal infarct are now present Unconfirmed Result
[2018-10-25 05:14] LABS: UR AMPHETAMINES QUAL NONE DETECTED (NONE DETECT); UR BARBITUATES QUAL NONE DETECTED (NONE DETECT); UR BENZODIAZEPIN QUAL NONE DETECTED (NONE DETECT); UR CANNABINOIDS QUAL NONE DETECTED (NONE DETECT); UR COCAINE QUAL NONE DETECTED (NONE DETECT); UR METHADONE QUAL NONE DETECTED (NONE DETECT); UR OPIATES QUAL NONE DETECTED (NONE DETECT); UR OXYCODONE QUAL PRESUMPTIVE POSITIVE (NONE DETECT); UR PCP QUAL NONE DETECTED (NONE DETECT)
[2018-10-25 05:26] LABS: AGAP 13; ALB/GLOB RATIO 1.6; ALBUMIN 4.1 g/dL (3.5-5.0); ALKALINE PHOSPHATASE 116 U/L (32-104); BUN 17 mg/dL (8-22); CHLORIDE 99 mmol/L (98-107); COSMO 285; CREATININE 0.8 mg/dL (0.5-0.9); ESTIMATED GFR > 60; GLUCOSE 202 mg/dL (70-104); GOT 27 U/L (10-30); GPT 27 U/L (10-36); POTASSIUM 3.8 mmol/L (3.5-5.1); SODIUM 139 mmol/L (136-145); TCO2 27 mmol/L (25-35); TOTAL BILIRUBIN < 0.15 mg/dL (0.20-1.00); TOTAL PROTEIN 6.6 g/dL (6.3-8.3)
[2018-10-25] MEDS ORDERED: ROCEPHIN 1 GM in NS 50 ML IV ONE (07:09)
--- NOTE | 2018-10-25 07:35 | Diag Imaging Result Doc PS360 ---
EXAM: CHEST-PORTABLE 10/25/2018 HISTORY: stroke like symptoms TECHNIQUE: AP portable at 0457 COMMENT: The inspiration is suboptimal. Considering the degree of inspiration there has probably been no significant change since 08/16/2018. IMPRESSION: Poor inspiration. Electronically signed by Will Monreal 10/25/2018 7:33 AM
[2018-10-25] MEDS ORDERED: NS 1,000 ML IV SCH (08:15)
[2018-10-25] MEDS ORDERED: LIPITOR PO SCH ×2 (09:00→21:00)
--- NOTE | 2018-10-25 09:22 | HISTORY AND PHYSICAL ---
CHIEF COMPLAINT: Disorientation, slurred speech. HISTORY OF PRESENT ILLNESS: This is a 63-year-old female who presented to the emergency room, being brought in by a friend. The friend told triage that she found this patient at home disoriented and exhibiting intoxicated-like behavior. She described this behavior as walking, leaning to one side, stumbling, and falling. Stated that "like she is drunk on that whiskey" per the ER chart. The friend stated that the last time she saw the patient normal was at 8:00 on 10/24/2018. The ER physician does have it documented that around midnight, the patient was noted to exhibit these symptoms, and at 4 a.m., she decided to bring the patient in. She did state that the patient was leaning to one side, and fell on the way to the car. The patient was very sleepy, did have slurred speech, but she denied any injury. CT of the head was performed, which revealed stable chronic changes with no definite acute intracranial pathology by CT. The patient was admitted to [facility] on 08/16/2018 and then discharged 08/18/2018 for these same symptoms. She did have a negative workup at this time. She had stated that she was in a pain clinic for chronic back pain in [place], where she had lived prior to moving to the [facility]. At that time, she was establishing a primary care physician, and she did report at that time that she had an appointment with the Pain Clinic in [place]. She was oxycodone positive on her drug screen today. When questioned about the name of the prescribing physician, she stated, "no, I don't get them from a doctor, I get them from my daughter and the people that live in her house." I asked when was the last time she took one of these pain pills, she stated, "my daughter gives me some pills, but I don't know what they are for sure." PAST MEDICAL HISTORY: 1. Right breast cancer, status post mastectomy. 2. Diabetes mellitus. 3. Hypertension. 4. Chronic back pain with opiate use and abuse. PAST SURGICAL HISTORY: 1. Mastectomy. 2. Total knee replacement. 3. Bilateral shoulder surgery. REVIEW OF SYSTEMS: Discussed with the patient with pertinent positives stated in the HPI. She denied any syncope or dizziness, any chest pain, palpitations, shortness of breath, cough, fever, chills, any PND, orthopnea, nausea, vomiting, diarrhea, constipation, black or bloody vomitus or stools, hematuria, dysuria, frequency, urgency. PHYSICAL EXAMINATION: GENERAL: This is a 63-year-old female who is lying on the stretcher in the emergency room. She is lethargic. She is sedated. She is in no distress. VITAL SIGNS: Blood pressure is 153/90, with a heart rate of 95, respirations are 22, temperature is 97.8 degrees, with room air saturations of 96% and 98%. EYES: Pupils equal, round, react to light. EOMs are intact. Sclerae anicteric. HENT: Head is normocephalic, atraumatic. Mucous membranes are moist. NECK: Supple with trachea midline. CARDIOVASCULAR: Regular rate and rhythm. S1 and S2 appreciated. She has bilateral pretibial edema, about 1+, with peripheral pulses palpable x4 extremities. PULMONARY: Breath sounds are clear with no increased work of breathing noted. Chest rises and falls symmetric with respiration. Chest wall is nontender to palpation. GASTROINTESTINAL: Abdomen is soft, nontender, nondistended, with bowel sounds in all 4 quadrants. GENITOURINARY: No CVA or suprapubic tenderness. SKIN: Warm and dry. NEUROLOGIC: She is awake. She is lethargic. Oriented x2. Pupils are equal, round, react to light. EOMs are intact. Forehead is spared. She does have a facial droop noted. She has no tongue or uvula deviation. Equal nasal flaring. Equal shoulder shrug. She has no plantar drift. [employer] are equal. She does not do [id number] as she will fall asleep during the exam. Her speech is slurred. While she is awake, she will carry on a conversation and answer questions in detail. IMAGING AND LABORATORY DATA: WBC is 9.8, with hemoglobin 10.2, hematocrit 33.2, and platelets of 303,000. INR is 1.10. Sodium 139, potassium 3.8, BUN 17, creatinine 0.8, with a glucose of 202. Troponin is negative. Urinalysis reveals positive nitrite with less than 10 microscopic red blood cells, white blood cells, epithelial cells. She does have 4+ bacteria. This is a catheter specimen. Urine drug screen is presumptive positive for oxycodone. Urine culture is pending. CT of the head reveals stable chronic changes with no definite acute intracranial pathology by CT. Chest x-ray reveals poor inspiration. EKG reveals sinus rhythm at a rate of 98. ASSESSMENT: 1. Altered mental status. 2. Questionable transient ischemic attack. 3. Urinary tract infection. 4. Diabetes mellitus type 2 with hyperglycemia. 5. Hypertension. 6. History of chronic back pain with [place] use. PLAN: The patient will be admitted to the medical floor. placed on telemetry. obtain an MRI of the brain with and without contrast. continue neurologic checks per stroke protocol. Pattern blood glucose with sliding scale insulin. Will attempt to update and confirm her home medications. Once she is awake and alert, we will place her on a diabetic diet. start a statin. Rocephin, further antibiotics will be culture driven. IV hydration. consult Physical Therapy, place on fall precautions. DVT prophylaxis, we will use SCDs, holding off on any anticoagulation as the patient has been falling, and for GI prophylaxis, Prilosec. Discussed with Dr Buckley. Further treatments are pending hospital course. Dictated by DANDRE Norman for Saji Buckley MD cc: DANDRE Norman Agree with the above. the following is my own face to face assessment. patient slightly confused, words slow but no slurring. no focal neurologic deficits. suspect intoxication rather than TIA but will eval for stroke given history. [facility]
--- NOTE | 2018-10-25 09:50 | Diag Imaging Result Doc PS360 ---
EXAM: MRI BRAIN W/WO CONTRAST INDICATION: CVA/TIA, slurred speech, fall COMPARISON: CT dated 10/25/2018. No prior MRI is available for comparison. FINDINGS: There is no evidence of acute infarct. There is stable bifrontal encephalomalacia and encephalomalacia at the anterior right temporal lobe. There is stable advanced white matter microangiopathy in the periventricular and subcortical white matter. There is no discrete intracranial mass, mass effect, or intracranial hemorrhage. There is no evidence of abnormal intracranial enhancement. The surrounding soft tissues and bony structures are essentially unremarkable. IMPRESSION: Bifrontal and anterior right temporal lobe encephalomalacia as well as advanced white matter microangiopathy that is stable as compared to the previous CT. No evidence of acute intracranial pathology. Electronically signed by Rony Capps 10/25/2018 9:47 AM
[2018-10-25 11:51] LABS: BASO# 0.07 X1000 (0.0-0.2); BASO% 0.8 % (0.0-0.8); EOS# 0.33 X1000 (0.0-0.7); EOS% 3.8 % (0.0-10.0); HEMATOCRIT 30.9 % (37.0-47.0); HEMOGLOBIN 9.6 g/dL (12.0-16.0); LYMPH# 2.89 X1000 (1.2-3.4); LYMPH% 32.9 % (20.5-51.1); MCH 25.5 PG (27-31); MCHC 31.1 g/dL (33-37); MCV 82.2 FL (81-99); MONO# 0.63 X1000 (0.11-0.59); MONO% 7.2 % (1.7-9.3); NEUT# 4.86 X1000 (1.4-6.5); NEUT% 55.3 % (42.2-75.2); PLT 281 X1000 (130-400); RBC 3.76 XMIL (4.2-5.4); RDW 15.9 % (11.5-14.5); WBC 8.78 X1000 (4.8-10.8)
[2018-10-25 12:21] LABS: AGAP 12; ALB/GLOB RATIO 1.2; ALBUMIN 3.7 g/dL (3.5-5.0); ALKALINE PHOSPHATASE 105 U/L (32-104); BUN 16 mg/dL (8-22); CALCIUM 8.7 mg/dL (8.8-10.2); CHLORIDE 100 mmol/L (98-107); COSMO 279; CREATININE 0.8 mg/dL (0.5-0.9); ESTIMATED GFR > 60; GLUCOSE 132 mg/dL (70-104); GOT 25 U/L (10-30); GPT 25 U/L (10-36); SODIUM 138 mmol/L (136-145); TCO2 26 mmol/L (25-35); TOTAL BILIRUBIN < 0.15 mg/dL (0.20-1.00); TOTAL PROTEIN 6.7 g/dL (6.3-8.3)
[2018-10-25] MEDS ORDERED: TYLENOL PO PRN (16:23)
[2018-10-25] MEDS ORDERED: ULTRAM PO PRN (16:23)
[2018-10-25] MEDS: HUMALOG SUBQ SCH ×2 (17:51→21:49)
[2018-10-25] MEDS: VOLTAREN PO SCH (20:14)
[2018-10-25] MEDS: NEURONTIN PO SCH (20:14)
[2018-10-25] MEDS: CYMBALTA PO SCH (20:14)
[2018-10-26] MEDS: HUMALOG SUBQ SCH ×3 (06:06→16:18)
[2018-10-26] MEDS ORDERED: PRILOSEC PO SCH ×2 (07:00)
[2018-10-26] MEDS ORDERED: ROCEPHIN 1 GM in NS 50 ML IV SCH (09:00)
[2018-10-26] MEDS: VOLTAREN PO SCH (09:16)
[2018-10-26] MEDS: NEURONTIN PO SCH (09:17)
[2018-10-26] MEDS: CYMBALTA PO SCH (09:17)
[2018-10-26 16:03] VITALS: BP 126/86
[2018-10-26] MEDS ORDERED: DESYREL PO SCH (21:00)
--- NOTE | 2018-10-27 04:48 | DISCHARGE SUMMARY ---
ADMISSION DATE: 10/25/2018 DISCHARGE DATE: 10/26/2018 DIAGNOSES: 1. Altered mental status, resolved. 2. Questionable transient ischemic attack. 3. Escherichia coli, currently gram-negative rods. 4. Diabetes mellitus. 5. Hypertension. 6. Chronic back pain with Bim use. DIAGNOSTICS: 1. Microbiology reveals urine culture reveals gram-negative gonsalo with culture and sensitivity pending. 2. CT of the head reveals stable chronic changes. 3. Chest x-ray reveals poor inspiration. HOSPITAL COURSE: Ms Nam presented to the emergency room disoriented with slurred speech after having taken some pill from her daughter. She remained lethargic. Speech was slurred. She improved through the night. This morning, she is alert and oriented with no slurred speech and no deficits. She was found to be nitrite positive on her urine. She was initially started on Rocephin which she received 2 doses. Preliminary is gram-negative rods. She is being discharged on Vantin. We did speak with Ms. Nam about the importance of adhering to medical regimen as prescribed per her doctor and not taking any narcotics or medications that she is not sure of the name or their effects on her which she did state she understood. DISCHARGE VITAL SIGNS: Blood pressure is 130/70 with heart rate of 89, respirations are 20, temperature is 97.8 degrees oral with room air saturations 96%. PHYSICAL EXAMINATION: Cardiovascular: Regular rate and rhythm. S1, S2 appreciated. Pulmonary: Breath sounds are clear with no increased work of breathing noted. Gastrointestinal: Abdomen is soft, nontender, nondistended with bowel sounds in all 4 quadrants. Neurologic: She is alert and oriented x3 with cranial nerves 2-12 grossly intact. DISCHARGE MEDICATIONS: 1. Cymbalta 30 mg p.o. b.i.d. 2. Gabapentin 30 mg p.o. b.i.d. 3. Bim 5 one q.6 to 8 hours p.r.n. 4. Glucophage 1000 mg p.o. daily. 5. Omeprazole 20 mg p.o. daily. 6. Voltaren 50 mg p.o. b.i.d. 7. Vantin 100 mg p.o. b.i.d. 8. Lipitor 40 mg p.o. at bedtime. 9. Aspirin 81 mg p.o. daily. 10. Elavil 150 mg p.o. daily. FOLLOWUP: Dr. Keaton Casas, appointment has been scheduled for 10/31/2018 at 11 a.m. The patient received this verbally as well as in writing. She has been instructed to call to be seen sooner or return to the ER for any syncope, dizziness, chest pain, palpitations, any shortness of breath, cough, temperature greater than 101, any chills, any nausea, vomiting, diarrhea, constipation, black or bloody vomitus or stool, hematuria, dysuria, frequency, urgency. She is being discharged home in stable condition with family members. TIME SPENT: This is a greater than 30 minute discharge. Dictated by DANDRE Norman for Saji Buckley MD cc: DANDRE Norman Agree with the above. the following is my own face to face assessment. now awake and fully oriented. still slightly weak and discussed the possibility of rehab placement, but the patient refused. [facility]ITAL[facility]
== END 2018-10-26 19:05 | disposition home or self-care (01) | DRG 69 ==
LOC: ED 03:57 → EDIPHOLD 08:37 → 3N 12:02
PROVIDERS: ATTEND Internal Medicine

== ENCOUNTER 2019-03-23 14:45 | Inpatient (IN) ==
[2019-03-23] MEDS ORDERED: ASPIRIN PO ONE (15:05)
[2019-03-23] MEDS ORDERED: ASPIRIN PR ONE (15:05)
--- NOTE | 2019-03-23 15:17 | EKG Report ---
Test Performed on : 03/23/2019 3:03:37 PM Test Reason : sob Blood Pressure : / mmHG Vent. Rate : 098 BPM Atrial Rate : 098 BPM P-R Int : 154 ms QRS Dur : 110 ms QT Int : 380 ms P-R-T Axes : 045 -42 059 degrees QTc Int : 485 ms Normal sinus rhythm. Left axis deviation Septal infarct , age undetermined Abnormal ECG When compared with ECG of 01-DEC-2018 01:59, Left bundle branch block is no longer present Septal infarct is now present Unconfirmed Result
--- NOTE | 2019-03-23 15:29 | Diag Imaging Result Doc PS360 ---
EXAM: CHEST-2 VIEWS 03/23/2019 HISTORY: sob TECHNIQUE: Two views of the chest COMMENT: There is ill-defined opacity in the posterior costophrenic sulcus of the right lower lobe as well as some increased interstitial markings. Compared to 11/30/2018 this has improved. There is some opacity in the left posterior costophrenic sulcus which was also present previously. IMPRESSION: Bibasilar pneumonia versus pulmonary edema slightly improved since 11/30/2018. Electronically signed by Will Monreal 03/23/2019 3:27 PM
--- NOTE | 2019-03-23 15:34 | PROVIDER DOCUMENTATION ---
HPI-General Adult - General Chief Complaint: Shortness of Breath Stated Complaint: SOB,NAUSEA,TIGHTNESS IN CHEST Time Seen by Provider: 03/23/19 15:15 Source: patient Allergies/Adverse Reactions: Patient Allergies Allergy/AdvReac Type Severity Reaction Status Date / Time morphine Allergy NAUSEA/VOMI Verified 03/23/19 19:15 TING Home Medications: Home Medication List Medication Instructions Recorded Confirmed Last Taken Type Metformin [Glucophage] 1,000 mg PO DAILY 05/28/14 03/23/19 10/05/15 07:00 History 1000 MG Gabapentin 300 mg PO BID 08/16/18 03/23/19 Unknown History Aspirin 81 mg PO DAILY chewtab 08/18/18 03/23/19 Unknown Rx ATORVAstatin [Lipitor] 40 mg PO QHS #30 tab 10/26/18 03/23/19 Unknown Rx Ibuprofen [Motrin] 800 mg PO Q8H PRN PRN #20 tab 11/07/18 03/23/19 Unknown Rx Furosemide [Lasix] 40 mg PO DAILY #5 tab 11/30/18 03/23/19 Unknown Rx Potassium Chloride [Klor-Con] 40 meq PO DAILY #5 packet 11/30/18 03/23/19 Un known Rx - History of Present Illness -Gen Adult Nature of Presenting Problems: 64yo female presents with CC of shortness of breath. The patient reports that this onset was two weeks ago, the shortness of breath got alot worse. The pt reports that she cant sleep laying down.She is nauseated and she is having shortness of breath and having to catch her breath. This is new onset, but she does have hx of CHF. The patient reports a slight cough, but no prod uction of sputum, and no fever. -no n/v, she has had diarrahea. -no current pain in GRI[place], chest or belly -no bleeding or swelling -no other symptoms -she is non-compliant with her water pill -She has noted LE swelling Location of Pain/Injury: reports: none, other (Shortness of breath) Pain Radiation: reports: no radiation Quality of Pain: reports: none Onset/Duration: reports: 1 week ago Timing: reports: still present, getting worse Context/Activities at Onset: reports: light activity Modifying Factors: worse with: exercise Associated Symptoms: reports: cough, diarrhea, shortness of breath, other (orthopnea). denies: fever/chills Review of Systems - Adult - REVIEW OF SYSTEMS - ADULT Constitutional: reports: no symptoms reported. denies: fever Eyes: reports: no symptoms reported. denies: eye pain Ears, Nose, Mouth & Throat: reports: no symptoms reported. denies: throat swelling Cardiovascular: reports: orthopnea. denies: chest pain Respiratory: reports: cough, shortness of breath Gastrointestinal: reports: diarrhea. denies: abdominal pain, nausea, vomiting Genitourinary: reports: no symptoms reported. denies: flank pain Musculoskeletal: reports: no symptoms reported Integumentary: reports: no symptoms reported Neurological: reports: no symptoms reported. denies: headache/migraines Psychiatric: reports: no symptoms reported. denies: alcohol/drug dependence Endocrine: reports: no symptoms reported Hematologic/Lymphatic: reports: no symptoms reported, other (swelling in LE) Past History - Adult - PAST MEDICAL HISTORY-ADULT Review of Records: reports: Old Records Reviewed Major Childhood Illnesses: reports: denies history Cardiovascular: reports: HTN, hyperlipidemia Gastrointestinal: reports: cholelithiasis Obstetrical/Gynecological: reports: other (R breast cancer) Musculoskeletal: reports: chronic pain Endocrine/Immune: reports: Diabetes Other Conditions: reports: denies history - PRIOR SURGERIES/PROCEDURES Surgical/Procedure History: reports: orthopedic (extremity) (bilateral shoulders), joint replacement (bilateral TKR) - PRIOR HOSPITALIZATIONS Prior Hospitalizations: reports: for other non-related - IMMUNIZATION STATUS Childhood Immunizations: See Nurse Assessment Flu Vaccine: See Nurse Assessment - FAMILY HISTORY Family History: reviewed, not pertinent Physical Exam-General - CONSTITUTIONAL General Appearance: appears well, alert, no apparent distress - EYES Eyes: negative: conjuctival exudate, photophobia, scleral icterus - HEAD, EARS, NOSE, MOUTH & THROAT HENMT: normocephalic/atraumatic, moist mucous membranes, pharynx normal. negative: hearing deficit, pharyngeal erythema, tonsillar exudate - NECK Neck: non-tender, normal inspection - RESPIRATORY Respiratory: respiratory distress (mild IWOB), crackles (bilateral bases). negative: stridor, wheezing - CARDIOVASCULAR Cardiovascular: tachycardia. negative: no edema (3+ LE edema) - GASTROINTESTINAL (ABDOMEN) Abdominal Exam: non tender, soft. negative: guarding - MUSCULOSKELETAL Extremity: swelling (3+ bilaterally), tenderness (mild pre tibial tenderness) - SKIN Integumentary: normal color, warm/dry - NEUROLOGIC Neurologic: grossly normal - PSYCHIATRIC Psych/Mental Status: normal mood/affect, normal thought content, normal thought process Progress - PLAN OF CARE/RESULTS Progress/Plan/Lab Results: Vital Signs - 8 hr 03/23/19 15:02 Temperature 98.1 F Pulse Rate 99 H Respiratory Rate 20 Blood Pressure 142/85 O2 Sat by Pulse Oximetry 93 L Orders Category Date Time Status Cardiac Monitoring DIRECTED Care 03/23/19 15:05 Active Oxygen Therapy- ED Nursing DIRECTED Care 03/23/19 15:05 Active Saline Loc NOW Care 03/23/19 15:05 Active CHEST-2 VIEWS [RAD] Stat Exams 03/23/19 15:05 Completed CBC WITH ELECTRONIC DIFF [HEME] Stat Lab 03/23/19 15:15 Ordered CK PROFILE [SP CHEM] Stat Lab 03/23/19 15:15 Ordered COMPREHENSIVE METABOLIC PANEL [CHEM] Stat Lab 03/23/19 15:15 Ordered PRO B-NATRIURETIC PEPTIDE Stat Lab 03/23/19 15:15 Ordered PROTIME WITH INR [COAG] Stat Lab 03/23/19 15:15 Ordered PTT [COAG] Stat Lab 03/23/19 15:15 Ordered TROPONIN T Stat Lab 03/23/19 15:15 Ordered Aspirin Med 03/23/19 15:05 Discontinued 300 mg PA NOW ONE Aspirin Med 03/23/19 15:05 Discontinued 325 mg PO NOW ONE CP/SOB/Palp >45 yrs of Age Stat Oth 03/23/19 15:05 Ordered EKG [EKG] Stat Ther 03/23/19 15:05 Draft Result Diagrams: 03/23/19 15:15 03/23/19 15:15 - REASSESSMENT Reassessment #1 Status: other (Discussed case with patient and we discussed trialing lasix at home or coming in for diuresis. Patient was concerned about going home and want to stay in the hospital. Patient did have slight drop to low 90s O2 on ambulation, but did recover. Given IWOB, saturation occasionally in the low 90s will plan for observations with diuresis. Discussed with the hospitalist team who has accepted the patient.) - EKG 1 Time of EKG reading by physician:: 15:57 EKG Read and Signed by:: Bravo Chavarria EKG Interpretation (*Must complete 3 of following elements*): Abnormal Rate: 98 Rhythm: sinus [place]: left QRS: normal PA Interval: normal ST Wave: normal Comments: LAE, LAD, no injury current Departure - Departure Date of Disposition Decision: 03/23/19 Time of Disposition Decision: 19:41 DIAGNOSIS: CHF exacerbation Qualifiers: Heart failure type: unspecified Qualified Code(s): I50.9 - Heart failure, unspecified Disposition: ADMITTED INPATIENT 09 Certified Medical Emergency: Emergent Condition: Fair Referrals and Follow-Ups: Dominique Carter CRNP [Primary Care Provider] - - Critical Care Note This patient required my direct & personal management of CC.: No Attestation - Physician/ ESTHER Attestation Patient care was provided by Advanced Practice Provider:: No The physician spent face to face time with patient:: Yes Advanced Practice Provider documentation review:: Supervising physician onsite and consulted in the evaluation and care of this patient. The physician did have a face to face encounter with the patient.
[2019-03-23 15:50] LABS: INR 1.17; PTT 29.8 Seconds (22.3-41.8)
[2019-03-23 15:51] LABS: BASO# 0.04 X1000 (0.0-0.2); BASO% 0.4 % (0.0-0.8); EOS# 0.09 X1000 (0.0-0.7); HEMATOCRIT 28.8 % (37.0-47.0); HEMOGLOBIN 8.3 g/dL (12.0-16.0); IMM GRAN# 0.02 X1000 (0.0-0.04); IMM GRAN% 0.2 % (0.0-0.5); LYMPH# 1.91 X1000 (1.2-3.4); LYMPH% 20.5 % (20.5-51.1); MCH 22.1 PG (27-31); MCHC 28.8 g/dL (33-37); MCV 76.8 FL (81-99); MONO# 0.51 X1000 (0.11-0.59); MONO% 5.5 % (1.7-9.3); NEUT# 6.73 X1000 (1.4-6.5); NEUT% 72.4 % (42.2-75.2); PLT 330 X1000 (130-400); RBC 3.75 XMIL (4.2-5.4); RDW 16.6 % (11.5-14.5)
[2019-03-23 16:03] LABS: AGAP 17; ALB/GLOB RATIO 1.4; ALBUMIN 3.9 g/dL (3.5-5.0); ALKALINE PHOSPHATASE 104 U/L (32-104); BUN 10 mg/dL (8-22); CALCIUM 9.7 mg/dL (8.8-10.2); CHLORIDE 100 mmol/L (98-107); CK PROFILE 48 U/L (24-173); COSMO 285; CREATININE 0.9 mg/dL (0.5-0.9); ESTIMATED GFR > 60; GLUCOSE 181 mg/dL (70-104); GOT 16 U/L (10-30); GPT 15 U/L (10-36); POTASSIUM 4.3 mmol/L (3.5-5.1); SODIUM 141 mmol/L (136-145); TCO2 24 mmol/L (25-35); TOTAL BILIRUBIN 0.15 mg/dL (0.20-1.00); TOTAL PROTEIN 6.7 g/dL (6.3-8.3)
[2019-03-23] MEDS ORDERED: LASIX IV ONE (17:11)
--- NOTE | 2019-03-23 21:19 | Diag Imaging Result Doc PS360 ---
EXAM: CT THORAX W/O CONTRAST 03/23/2019 HISTORY: infiltrates? TECHNIQUE: This exam was performed using automated exposure control, adjustment of mA or kV according to patient size, and/or use of iterative reconstruction technique. COMMENT: Comparison is made with the previous study of 11/30/2018. There are bilateral shoulder arthroplasties which produces some beam hardening artifact over the apical regions. There is a right breast implant. There are bilateral pleural effusions. There is a fairly large aorticopulmonary window node measuring over 2.4 cm in long axis. This has not changed significantly since the previous study. There are bilateral pleural effusions more so on the left than the right which was also the case previously. There is some platelike opacity present in the lingula. This was also present some extent in the previous study but is somewhat worse. There are some opacities in the posterior lateral costophrenic sulcus of the right lower lobe which has not changed significantly since the previous study. The regional skeleton is otherwise intact. IMPRESSION: Slightly worsened lingular atelectasis. Otherwise stable since 11/30/2018. Electronically signed by Will Monreal 03/23/2019 9:17 PM
[2019-03-23 22:59] LABS: URINE SOURCE CATH
[2019-03-23] MEDS: NORCO-7.5 PO PRN (23:22)
[2019-03-23 23:39] LABS: BILIRUBIN URINE NEGATIVE (NEGATIVE); BLOOD URINE NEGATIVE (NEGATIVE); COLOR STRAW; GLUCOSE URINE NEGATIVE (NEGATIVE); KETONE URINE NEGATIVE (NEGATIVE); LEUKOCYTES URINE NEGATIVE (NEGATIVE); NITRITE URINE NEGATIVE (NEGATIVE); PH URINE 7.5; PROTEIN URINE NEGATIVE (NEGATIVE); SP GRAVITY URINE 1.006; TURBIDITY URINE CLEAR (CLEAR); UR EPITHELIAL CELLS <10 /HPF (<10); URINE BACTERIA NEGATIVE /HPF; URINE RBC <10 /HPF (<10); URINE WBC <10 /HPF (<10); UROBILINOGEN URINE NORMAL (NORMAL)
[2019-03-23] MEDS: HUMALOG SUBQ SCH (23:40)
[2019-03-23] MEDS ORDERED: LEVAQUIN PO SCH (23:41)
[2019-03-23] MEDS ORDERED: TYLENOL PO PRN (23:41)
[2019-03-23] MEDS ORDERED: ZOFRAN IV PRN (23:41)
[2019-03-24 00:09] LABS: HEMOGLOBIN A1C 7.2 % (4.8-6.0)
[2019-03-24] MEDS: NEURONTIN PO SCH ×3 (00:27→20:56)
[2019-03-24] MEDS: LIPITOR PO SCH ×2 (00:27→20:56)
--- NOTE | 2019-03-24 04:54 | HISTORY AND PHYSICAL ---
CHIEF COMPLAINT: Shortness of breath. HISTORY OF PRESENT ILLNESS: This is a 64-year-old female who presents to the emergency room with shortness of breath. Apparently the onset was around two weeks ago. It has progressively gotten worse. Says she cannot lay flat, is nauseated, difficulty catching her breath. She does have a history of congestive heart failure. She has a slight cough. States that it is not productive, more of a dry cough. No fever or chills. Has had some mild diarrhea. She is noncompliant with her Lasix. She also noted that she is having swelling in the bilateral lower extremities. She described what was essentially PND and orthopnea. A chest x-ray was obtained which showed increased pulmonary vascular congestion and bilateral lower effusions. There was some concern of infiltrates so a noncontrasted CT was obtained. There was no mention of infiltrates, just effusions and pulmonary edema. The patient will be admitted to the medical floor for further evaluation and treatment. PAST MEDICAL HISTORY: Right breast cancer, status post mastectomy. Congestive heart failure. Diabetes mellitus, type 2. Hypertension. Chronic pain with opioid use and abuse. PREVIOUS SURGICAL HISTORY: Mastectomy. Total knee replacement. Bilateral shoulder surgery. SOCIAL HISTORY: No tobacco, alcohol or illicit drugs. FAMILY HISTORY: Positive for diabetes mellitus. ALLERGIES: Morphine. HOME MEDICATIONS: Lasix 40 mg p.o. daily, ibuprofen 800 mg p.o. q.8 p.r.n., metformin 1000 mg p.o. daily, aspirin 81 mg p.o. daily, atorvastatin 40 mg p.o. nightly, Neurontin 300 mg p.o. b.i.d., potassium chloride 40 mEq p.o. daily. REVIEW OF SYSTEMS: Fourteen-point review of systems conducted with the patient. Pertinent positives listed above in the HPI. All other systems reviewed and found to be negative. PHYSICAL EXAMINATION: VITAL SIGNS: Temperature 98.3, pulse 99, respirations 20, blood pressure 157/85, oxygen saturation 95% on room air. GENERAL: A 64-year-old female laying in the ER stretcher. She is in no acute distress. Alert and oriented times 3, mildly tachypneic. HEENT: Head is atraumatic, normocephalic. Pupils equal, round, reactive to light. Extraocular eye movement is intact. Sclera is anicteric. Conjunctiva is pink. Oral mucosa is moist. NECK: Supple. No JVD. No thyromegaly. Trachea is midline. No cervical lymphadenopathy. CARDIAC: S1, S2 appreciated. No murmurs, gallops, rubs. LUNGS: Crepitations noted throughout bilateral air malcolm. Decreased at the bases. No rhonchi. Symmetric rise and fall with respirations. ABDOMEN: Soft, nondistended, nontender. Bowel sounds present all 4 quadrants, normoactive. No pulsatile mass. No organomegaly. EXTREMITIES: No clubbing, cyanosis. Two-plus pitting edema bilateral lower extremities. Two- plus pedal pulses. GENITOURINARY: No bladder distention. Patient voids. Otherwise deferred. NEUROLOGICAL: Alert and oriented times 3. No focal motor deficits. Otherwise nonfocal examination. DIAGNOSTIC DATA: For chest x-ray and CT, please see HPI. LABORATORY DATA: WBC 9.30. Hemoglobin 8.3. Hematocrit 28.8. Platelet count 330. Coagulations within normal limits. Sodium 141. Potassium 4.3. Chloride 100. Carbon dioxide 24. BUN 10. Creatinine 0.9. Glucose 181. ProBNP 2431. Urine unremarkable. ASSESSMENT: 1. Congestive heart failure with exacerbation. 2. Hyperlipidemia. 3. Diabetes mellitus, type 2. 4. Anemia. PLAN: 40 of Lasix was given in the emergency room. Will place a [place]. Give 60 of Lasix IV daily. She was originally started on Levaquin in the emergency room. CT result does not make any mention of infiltrates. She has not been febrile. This is likely all congestive heart failure exacerbation. Will check an anemia profile. Patient will need to be more compliant with her Lasix at home. Further recommendation per patient clinical course. Dictated by DANDRE Delaney for Jeremi Morse MD I have performed a face to face diagnostic evaluation. Labs/ xrays- reviewed. Exam- Chest- rales, CV- regular. A/P- CHF Exacerbation- Admit, diuresis with lasix, Cardiology consult. Dr. Morse cc: DANDRE Delaney MD [facility]
[2019-03-24] MEDS: HUMALOG SUBQ SCH ×4 (06:41→20:54)
[2019-03-24] MEDS ORDERED: LASIX IV SCH (09:00)
[2019-03-24 09:08] LABS: AGAP 10; BUN 10 mg/dL (8-22); CALCIUM 8.9 mg/dL (8.8-10.2); CHLORIDE 97 mmol/L (98-107); COSMO 276; CREATININE 0.8 mg/dL (0.5-0.9); ESTIMATED GFR > 60; GLUCOSE 121 mg/dL (70-104); POTASSIUM 3.6 mmol/L (3.5-5.1); SODIUM 138 mmol/L (136-145); TCO2 31 mmol/L (25-35)
[2019-03-24] MEDS: ASPIRIN PO SCH (09:41)
[2019-03-24] MEDS: KLOR-CON POWDER PACKET PO SCH (09:41)
[2019-03-24] MEDS ORDERED: LASIX IV ONE (17:05)
[2019-03-24] MEDS ORDERED: MAGNESIUM SULFATE 2 GM/S.W.I. 2 GM/50 ML IVPB IV ONE (17:15)
[2019-03-24] MEDS ORDERED: KLOR-CON PO ONE (17:15)
--- NOTE | 2019-03-24 18:25 | PROGRESS NOTE ---
DATE: 03/24/2018 INTERVAL HISTORY: Ms. Nma was admitted for congestive heart failure exacerbation leading to shortness of breath. Overnight, she did not have any acute events. Her pulse has been between 90s to 80s. Her blood pressure is normal. She is saturating 96% on 2 L nasal cannula. She does have microcytic anemia which appears to be chronic. SUBJECTIVE: Ms. Nam feels she is better. She does have some memory impairment and speech abnormality because of a previous stroke. VITALS: Temperature 97.8, pulse 96, respiratory rate 16, blood pressure 120/77, saturating 96% on 2 L nasal cannula. PHYSICAL EXAMINATION: General: Not in acute distress. HEENT: Oral cavity is moist. Lungs: Air entry bilaterally equal. No wheeze or rhonchi. She has decreased air entry in infrascapular regions at bases with inspiratory crackles. Cardiovascular: S1, S2 normal. Regular. No murmur or gallop. Abdomen: Soft, nontender. Neck: Mild jugular venous distention. Extremities: She has bilateral lower extremity edema. LABS: No CBC today. BMP is acceptable. No microbiological data. Chest x-ray had suggested bibasilar pneumonia versus pulmonary edema, which is improved since before; however, chest CT did not have any evidence of organized consolidation. Electrocardiogram had normal sinus rhythm, left axis deviation. ASSESSMENT AND PLAN: 1. Acute exacerbation of chronic systolic congestive heart failure with ejection fraction of 45% in July 2018. This is likely in the setting of noncompliance with Lasix, as the patient had stopped taking Lasix. I will give her intravenous Lasix with 1 more dose tonight and follow up with a basic metabolic panel and start her on oral Lasix. Limited echocardiogram has also been ordered. Her EKG did not have [id number]-zsicudic-related changes, and her initial troponin was negative. She denies known history of coronary artery disease. I will continue her home aspirin and atorvastatin. 2. History of non insulin-dependent diabetes mellitus and microcytic anemia. I will continue her home gabapentin for chronic pain and sliding scale insulin. Follow up with iron panel.. DISPOSITION: I will continue to monitor the patient inside the hospital, as she is needing IV Lasix, and will plan to transition to oral Lasix. Plan of care discussed with the patient, and her questions have been answered. cc: Garfield Townsend MD
[2019-03-24] MEDS: NORCO-7.5 PO PRN (20:55)
[2019-03-24] MEDS: MELATONIN PO SCH (23:43)
[2019-03-25] MEDS: HUMALOG SUBQ SCH ×4 (06:00→21:35)
[2019-03-25] MEDS: NORCO-7.5 PO PRN ×2 (08:13→21:32)
[2019-03-25] MEDS: NEURONTIN PO SCH ×2 (08:13→21:33)
[2019-03-25] MEDS: LASIX PO SCH (08:13)
[2019-03-25] MEDS: KLOR-CON POWDER PACKET PO SCH (08:13)
[2019-03-25] MEDS: ASPIRIN PO SCH (08:13)
[2019-03-25 08:22] LABS: IRON SATURATION 5 %; TIBC 398 ug/dL; TOTAL IRON 21 ug/dL (49-151); UNBOUND IRON 377 ug/dL (112-346)
[2019-03-25 08:29] LABS: CALCIUM 9.4 mg/dL (8.8-10.2); CREATININE 1.1 mg/dL (0.5-0.9); MAGNESIUM 1.8 mg/dL (1.5-2.7); POTASSIUM 3.9 mmol/L (3.5-5.1)
[2019-03-25 09:05] LABS: FERRITIN 16 ng/mL (13-150)
[2019-03-25 09:30] LABS: BASO# 0.04 X1000 (0.0-0.2); BASO% 0.4 % (0.0-0.8); EOS# 0.15 X1000 (0.0-0.7); EOS% 1.4 % (0.0-10.0); HEMATOCRIT 32.8 % (37.0-47.0); HEMOGLOBIN 9.5 g/dL (12.0-16.0); IMM GRAN# 0.02 X1000 (0.0-0.04); IMM GRAN% 0.2 % (0.0-0.5); LYMPH# 3.04 X1000 (1.2-3.4); LYMPH% 27.6 % (20.5-51.1); MCH 21.8 PG (27-31); MCV 75.4 FL (81-99); MONO# 0.66 X1000 (0.11-0.59); MPV 10.1 FL (7.4-10.4); NEUT# 7.12 X1000 (1.4-6.5); NEUT% 64.4 % (42.2-75.2); PLT 393 X1000 (130-400); RBC 4.35 XMIL (4.2-5.4); RDW 16.5 % (11.5-14.5); WBC 11.03 X1000 (4.8-10.8)
--- NOTE | 2019-03-25 14:45 | ECHO REPORT ---
ORDER DATE: 03/24/2019 INDICATION: Evaluate LV function, CHF. FINDINGS: This is a limited study. No Doppler evaluation was performed. 1. Left atrium is mildly enlarged at 4 cm. 2. There is no mitral valve prolapse. The aortic valve appears to open reasonably well. 3. Normal RV size and systolic function. 4. Estimation of the left ventricular systolic function is difficult. Estimate is in the order of 35 to 40% with global hypokinesis. There does appear to be some irregularity in the rhythm making estimation more difficult. Would recommend an alternative modality to assess. Could consider a gated heart scan. 5. No pericardial effusion identified. cc: MD Garfield De La Garza MD
--- NOTE | 2019-03-25 16:05 | PROGRESS NOTE ---
DATE: 03/25/2019 INTERVAL HISTORY: No acute events overnight. SUBJECTIVE: Ms. Nam denies any chest pain or shortness of breath. She is sleepy. She is feeling better. We discussed about changing her Lasix to oral. We discussed about keeping her inside the hospital for 1 more day. VITALS: Temperature of 97.8 degrees, pulse 84, respiratory rate 20, blood pressure 106/57, she is saturating 91% on room air. PHYSICAL EXAMINATION: Not in acute distress. Oral cavity is moist. Air entry bilaterally equal. No wheeze, rhonchi, or crackles. Cardiovascular: S1, S2 normal. No murmur, rub, or gallop. Abdomen: Soft, nontender. Significantly improved edema of lower extremities. Her urine catheter has been ordered to be removed. She is drowsy but arousable. Answers questions appropriately. Input and output suggest she had 5.7 L of urine yesterday. LABS: Suggestive of a mild leukocytosis, microcytic anemia, normal platelet count. She does have normal potassium, normal magnesium, and slight elevation in creatinine. Her iron studies suggest vitamin B12 and folate level have been good. No new microbiological data. Echocardiogram suggests ejection fraction of about 40% with global hypokinesia. ASSESSMENT AND PLAN: 1. Acute exacerbation of chronic systolic congestive heart failure with ejection fraction of 40%. Ejection fraction is slightly decreased from 45% in July to 35-40% in March 2019 with global hypokinesia. Her current presentation is likely because of not taking Lasix. I will continue the patient on oral Lasix and follow up with electrolytes tomorrow. 2. Hyperlipidemia. Continue atorvastatin, aspirin. She denies known history of coronary artery disease. 3. History of encephalomalacia on the MRI. Continue aspirin and atorvastatin. 4. History of iin-evpnrqf-ehpnmwodz diabetes mellitus and microcytic anemia. Continue her home gabapentin and sliding scale insulin. Iron panel does have low ferritin and low saturation, suggestive of iron deficiency, and I will start her on iron tablets. DISPOSITION: I will monitor patient on oral Lasix inside the hospital for another day. Plan of care discussed with her. All questions have been answered. cc: Garfield Townsend MD
[2019-03-25] MEDS: MELATONIN PO SCH (21:31)
[2019-03-25] MEDS: LIPITOR PO SCH (21:31)
[2019-03-26] MEDS: HUMALOG SUBQ SCH (06:15)
[2019-03-26 08:44] VITALS: BP 122/73
[2019-03-26] MEDS ORDERED: FERROUS SULFATE PO SCH (09:00)
[2019-03-26] MEDS ORDERED: COREG PO SCH (09:00)
[2019-03-26] MEDS: ASPIRIN PO SCH (09:03)
[2019-03-26] MEDS: LASIX PO SCH (09:03)
[2019-03-26] MEDS: KLOR-CON POWDER PACKET PO SCH (09:03)
[2019-03-26] MEDS: NEURONTIN PO SCH (09:06)
[2019-03-26] MEDS: NORCO-7.5 PO PRN (09:09)
[2019-03-26] MEDS ORDERED: FLU VACCINE IM ONE (09:24)
--- NOTE | 2019-03-27 10:18 | DISCHARGE SUMMARY ---
ADMISSION DATE: 03/23/2019 DISCHARGE DATE: 03/26/2019 DISCHARGE DISPOSITION: Home. DISCHARGE CONDITION: Hemodynamically stable. She denies any chest pain or shortness of breath. She is breathing well on room air. Her lower extremity edema has significantly decreased. I counseled her about heart failure, need for Lasix, need for following up with consulting engineer within 1 week's time and workup further regarding her heart function. She understood it. I also provided her written discharge instructions. I called her daughter Ms Das listed as the primary contact to discuss with her about the patient's hospital course. However, she did not citrus picker and her voicemail was full. DISCHARGE DIAGNOSES: 1. Acute on chronic systolic congestive heart failure exacerbation due to noncompliance with Lasix. 2. Acute kidney injury due to Lasix use. 3. Iron deficiency anemia with concurrent NSAID - ibuprofen use OTHER DIAGNOSES: 1. History of systolic congestive heart failure which has not been worked up yet. 2. History of hyperlipidemia. 3. History of encephalomalacia on MRI, though patient only admitted history of TIA. 4. History of iwy-[id number]-[id number] diabetes mellitus. 5. Microcytic anemia. 6. Iron deficiency anemia. VITALS: At the time of discharge temperature 98.4 degrees, pulse 91, respiratory 18, blood pressure 120/73, saturating 95% room air. PHYSICAL EXAMINATION: She is not in acute distress. HEENT: Oral cavity is moist. Lungs: Air entry bilaterally equal. No wheeze, rhonchi, crackles. Heart: S1, S2 normal. No murmur or gallop. Abdomen: Soft. Nontender. Extremities: No lower extremity edema. Neurologic: She is alert. She could tell me her date. She is oriented to time, place, and person. However, she states that she may forget the discharge instructions and wanted me to write it up, which I did. DISCHARGE MEDICATIONS: 1. Gabapentin 300 mg b.i.d. 2. Metformin 1000 mg daily. 3. Atorvastatin 40 mg at nighttime. 4. Carvedilol 3.125 mg every 12 hours. 5. Aspirin 81 mg daily. 6. Ferrous sulfate 325 mg daily. 7. Potassium chloride 40 mEq daily. 8. Furosemide 40 mg daily. 9. Ibuprofen 800 mg every 8 hours as needed. LABS: During hospital admission at discharge WBC 97338, hemoglobin 9.5, MCV 75, platelet 393,000. BUN 19, creatinine 1.1, blood glucose 185. Hemoglobin A1c 7.2. Ferritin of 16, iron saturation of 5%. MICROBIOLOGY: None. IMAGING: During hospital admission: Chest CT on 03/23/2019 had slightly worsened lingular atelectasis, otherwise it was stable. Chest x-ray on presentation had bibasilar pneumonia versus pulmonary edema. Electrocardiogram on presentation had a normal sinus rhythm, left axis deviation, septal infarct age undetermined. Echocardiogram had estimated left ventricular ejection fraction 35 to 40 percent with global hypokinesia, though it was difficult. There was some irregularity of rhythm on the echocardiogram. However, EKG was normal sinus rhythm. HOSPITAL COURSE SUMMARY: Ms. Nam is a 64-year-old lady who presented on 03/23/2019 with chief complaints of shortness of breath which was progressively worsening, orthopnea, slight cough which was nonproductive. She also had bilateral lower extremity swelling and she had run out of her Lasix which she was not taking. In the emergency room on arrival, her temperature was 98.1 degrees, pulse 99, respiratory rate of 20, blood pressure of 142/85 and she was saturating 93% on room air. Chest x-ray had pulmonary vascular congestion and suspected pulmonary edema. She was admitted for acute on chronic systolic congestive heart failure exacerbation. She was started on intravenous Lasix which was changed to oral Lasix which she improved. At the time of discharge she is given a prescription of oral Lasix and her echocardiogram had ejection fraction of 35 to 40 percent, which was slightly lower than the echocardiogram she had in July 2018. She was started on carvedilol at the time of discharge, and was advised to follow up with a consulting engineer outpatient and contact information was provided. She was also found to have microcytic anemia. It was thought it could be related to ibuprofen so she was provided a prescription of iron tablets and she was advised not to take ibuprofen. More than 30 minutes of time was spent in discharging the patient. Plan of care discussed with the patient. All of her questions were answered. cc: MD EDILIA Espinoza
== END 2019-03-26 12:41 | disposition home or self-care (01) | DRG 292 ==
LOC: ED 14:45 → 3N 23:38 → SUATTDRO 23:38
PROVIDERS: ATTEND Internal Medicine